=== PATIENT | male | born 1950 | race Hispanic/Latino ===

== ENCOUNTER 2024-06-23 17:31 | Emergency (ER) | payer MEDICARE, MEDICAID ==
[~2024-06-23] VITALS: Ht 162.6 cm; Wt 81.2 kg
[2024-06-23] MEDS ORDERED: ACETAMINOPHEN 500 MG TAB PO ONE (17:45)
[2024-06-23] MEDS ORDERED: TAMSULOSIN HCL0.4 MG PO (17:53)
[2024-06-23] MEDS ORDERED: ATORVASTATIN CA20 MG PO (17:54)
[2024-06-23] MEDS ORDERED: METFORMIN HCL500 M1 PO (17:54)
[2024-06-23] MEDS ORDERED: LOSARTAN POTAS100 MG PO (17:54)
[2024-06-23] MEDS ORDERED: CHLORTHALIDONE25 MG PO (17:54)
[2024-06-23] MEDS ORDERED: AMLODIPINE BESYL5 MG PO (17:54)
[2024-06-23 18:04] LABS: BASOPHILS 0.5 % (0-2); HEMATOCRIT 36.5 % (35.0-50.0); HEMOGLOBIN 13.1 g/dL (12.0-18.0); LYMPHOCYTES 6.5 % (24-44); MCH 30.4 (27-36); MCV 84.7 fl (81-99); MONOCYTES 10.2 % (0-12); NEUTROPHILS 82.8 % (39-80); PLATELET COUNT 192 K/uL (140-440); RBC 4.31 M/ul (4.3-5.7); RDW 13.5 (10.5-15.0)
[2024-06-23 18:23] LABS: ALBUMIN 3.2 g/dL (3.4-5.0); ALBUMIN/GLOBULIN RATIO 0.63 (1.1-2.4); ANION GAP 12.8 (7-21); BUN/CREATININE RATIO 18.6 (6.0-28.6); CALCIUM 8.4 mg/dL (8.5-10.1); CREATININE, SERUM 1.72 mg/dL (0.70-1.30); POTASSIUM 2.8 mmol/L (3.5-5.1); PROTEIN, TOTAL 8.3 g/dL (6.4-8.2)
[2024-06-23 18:28] LABS: LACTIC ACID, BLOOD 1.8 mmol/L (0.4-2.0)
[2024-06-23 18:40] LABS: INFLUENZA B NAA NEGATIVE (NEGATIVE); RESPIRATORY SYNCYTIAL VIR NAA NEGATIVE (NEGATIVE)
[2024-06-23] MEDS ORDERED: POTASSIUM CHLORIDE 10 MEQ TABCR PO ONE (19:15)
[2024-06-23] MEDS ORDERED: SODIUM CHLORIDE 0.9% 1,000 ML IV SCH (19:15)
[2024-06-23 20:34] LABS: BILIRUBIN, URINE NEGATIVE (negative); BLOOD/HGB, URINE SMALL (Negative); KETONE, URINE NEGATIVE (Negative); LEUK ESTERASE, URINE MODERATE (negative); NITRITE, URINE POSITIVE (negative)
[2024-06-23 20:43] LABS: WHITE BLOOD CELLS, URINE 21-40 /HPF (0-5)
[2024-06-23 20:44] LABS: BACTERIA, URINE 4+ /hpf (negative); CASTS, URINE ND \\lpf; COLLECTION TYPE, URINE CLEAN CATCH; CRYSTALS, URINE NONE SEEN (0-1+); EPITHELIAL CELLS, URINE SQUAMOUS 2+ /lpf (0-1+); REFLEX CULTURE, URINE No (No)
[2024-06-23] MEDS ORDERED: CEFTRIAXONE/SODIUM CHLORIDE 2 GM/100 ML PIGGYBACK IV ONE (21:00)
[2024-06-23] MEDS ORDERED: LEVOFLOXACIN500 MG PO (22:21)
[2024-06-23] MEDS ORDERED: K-TAB ER20 MEQ PO (22:23)
[2024-06-23 22:38] VITALS: BP 102/65
== END 2024-06-23 22:38 | disposition home or self-care (01) ==
LOC: ED 17:31
PROVIDERS: Emergency Medicine
DX: N39.0 Urinary tract infection, site not specified (principal); E11.9 Type 2 diabetes mellitus without complications; I10 Essential (primary) hypertension; Z79.899 Other long term (current) drug therapy; Z79.84 Long term (current) use of oral hypoglycemic drugs
CPT/HCPCS: 36415; 51701; 71045; 80053; 81001; 83605; 83735; 85025; 87502; 99285-25; A9270; J0696; J7030; U0002